=== PATIENT | male | born 1955 | race Caucasian/White ===

== ENCOUNTER 2018-11-24 07:35 | Day surgery (SDC) | payer BC ==
[~2018-11-24 07:35] MED LIST: ALBUTEROL NEB (CONC) 2.5 MG/0.5 ML INHALATION ONE; LIDOCAINE 2% (PF) 20 MG/ML 5 ML VIAL INHALATION ONE; LIDOCAINE VISCOUS 300 MG/15 ML CUP MUCOUS MEM ONE; SODIUM CHLORIDE 0.9% 1,000 ML IV SCH
[2018-11-24] MEDS ORDERED: LIDOCAINE 1% 20 ML VIAL (10MG/ML) FOR IV START INTRADERMA ONE (08:40)
[2018-11-24] MEDS ORDERED: DEXAMETHASONE SOD PHOS (MDV) 100 MG/10 ML VIAL IVP ONE ×2 (08:44)
[2018-11-24] MEDS ORDERED: ONDANSETRON 4 MG/2 ML VIAL IVP ONE ×2 (08:44)
[2018-11-24] MEDS ORDERED: LACTATED RINGERS 1,000 ML IV ONE (08:46)
[2018-11-24] MEDS ORDERED: MIDAZOLAM 2 MG/2 ML VIAL ONE (10:10)
[2018-11-24] MEDS ORDERED: PROPOFOL 10 MG/ML 20 ML VIAL IV ONE (10:10)
[2018-11-24] MEDS ORDERED: fentaNYL (PF) 50 MCG/ML 2 ML AMP ONE (10:10)
[2018-11-24] MEDS ORDERED: NEOSTIGMINE 1 MG/ML 10 ML VIAL ONE (10:10)
[2018-11-24] MEDS ORDERED: GLYCOPYRROLATE 0.2 MG/ML 2 ML VIAL ONE (10:10)
[2018-11-24] MEDS ORDERED: ROCURONIUM BROMIDE 10 MG/ML 10 ML VIAL IV ONE (10:10)
[2018-11-24] MEDS ORDERED: PHENYLEPHRINE-0.9% NACL SYG 1 MG/10 ML SYRINGE ONE (10:10)
[2018-11-24] MEDS ORDERED: LIDOCAINE 1% INJ 10MG/ML (20 ML MDV) ONE (10:10)
[2018-11-24] MEDS ORDERED: SUCCINYLCHOLINE CHLORIDE 100 MG/5 ML SYR IV ONE (10:10)
[2018-11-24] MEDS ORDERED: ePHEDrine SULFATE/0.9% NACL/PF 50 MG/5 ML SYRINGE IV ONE (10:10)
--- NOTE | 2018-11-24 11:24 | CT ---
EXAMINATION TYPE: CT Chest lavon Abad Protocol DATE OF EXAM: 11/24/2018 COMPARISON: None HISTORY: 53-year-old male Pulmonary nodule/mass. Navigational imaging. TECHNIQUE: Contiguous axial scanning of the chest without IV contrast. Inspiratory and expiratory carolyne ging was performed. Coronal and sagittal reconstructions performed. CT DLP: 567 mGycm Automated exposure control for dose reduction was used. FINDINGS: Large left hilar mass encases the left main pulmonary artery measuring at least 10.3 cm AP and 10.5 c m craniocaudal. This encases the left upper lobe bronchus with mass effect, narrowing the left upper lobe bronchus and partially encases the distal left main stem bronchus as well as the superior segmen t of left lower lobe bronchus. No definite mediastinal lymphadenopathy seen. Heart normal size without pericardial effusion. No consolidation or pleural effusion. Visualized upper abdomen shows hypodense lesion, probable cyst measuring 1.4 cm posterior right hepat ic dome and diffuse low-density thickening of the left adrenal gland, probably adrenal hyperplasia. Bones: No osseous destructive process seen. Superior end plate Schmorl's node of T5. IMPRESSION: LARGE 10.5 X 10.3 CM LEFT HILAR MASS PARTIALLY ENCASING DISTAL LEFT MAINSTEM BRONCHUS AND ENCASING TH E LEFT UPPER LOBE BRONCHUS WITH MASS EFFECT, NARROWING THE LEFT UPPER LOBE BRONCHUS. PARTIAL ENCASEME NT OF THE SUPERIOR SEGMENT LEFT LOWER LOBE BRONCHUS. NO DEFINITE SUSPICIOUS MEDIASTINAL LYMPHADENOPAT HY. IMAGING PERFORMED FOR NAVIGATIONAL PURPOSES.
[2018-11-24 11:26] VITALS: TEMP 97
--- NOTE | 2018-11-24 12:28 | P.PCN ---
Date of Procedure: 11/24/18 Preoperative Diagnosis: Left hilar mass Postoperative Diagnosis: Left hilar mass Procedure(s) Performed: Navigation bronchoscopy, transbronchial biopsy, brushing, transbronchial needle aspirate, bronchioloalveolar lavage Anesthesia: LAW Surgeon: Conchita Fry Hosiery Mender #1: Kaylan Bueno Estimated Blood Loss (ml): 0 Pathology: other Condition: stable Disposition: same day Operative Findings: This procedure was done under general anesthesia. The procedure was done under navigational guidance. A CAT scan of the chest was done using the [employer] protocol and following that the left hilar mass was mapped. 3 different target areas of interest were mapped on the CAT scan and the appropriate trajectory leading to left hilar mass was identified and all of this information was uploaded into a USB and then into the [employer] navigational tower. The appropriate V pads were applied to the patient's chest. The patient was brought into the operating room and under general anesthesia the procedure was completed. Intubation and mechanical ventilation process was done by MANAGER [employer]ERIALS MANAGEMENT anesthesia. The patient wasn't evaluated by a #8 orotracheal tube. After achieving adequate anesthesia, the flexible bronchoscope was inserted through the endotracheal tube and was advanced into the door trachea. The tip of the orotracheal tube was seen around 2 cm above the karen. The distal trachea was within normal limits. Karen was sharp in the midline. Examination of the right side including the right mainstem bronchus, right upper lobe bronchus, bronchus intermedius and right middle lobe bronchus and the right lower lobe bronchus and the various segments on the right side that were all within normal limits. The bronchoscope was then moved to the left. Examination of the left mainstem bronchus was within normal limits. The karen the left upper lobe bronchus of the left lower lobe bronchus was within normal limits. Examination of the left upper lobe showed that the apical segment of the left upper lobe had a tiny fragment of an endobronchial tumor which was pain with irregular surface. The anterior segment of the left upper lobe, lingular segments were patent within normal limits. Examination of the left lower lobe bronchus anterior lateral and the posterior segment and the patient was appropriate and within normal limits. At this point in time, using navigational guidance, transbronchial and endobronchial biopsies of the left hilar mass was done through the apical segment of the left upper lobe and the posterior segment of the left lower lobe. Appropriate samples were collected. Transbronchial needle aspirates of the left upper lobe apical segment was done and similarly, brushing of the left hilar mass was done utilizing the apical segment of the left upper lobe and position was again confirmed by navigational guidance. At the completion of the procedure, a BAL of the left upper lobe was done with a total of 80 mL of fluid was infused and 25 mL was suctioned back. Total amount of bleeding was less than 5 ML's. The patient tolerated the procedure well. Bronchoscope was removed. The patient was extubated and the patient was transferred recovery in stable condition. No bedside complications. The patient will be discharged home once cleared by anesthesia.
[2018-11-24 12:53] VITALS: PULSE 94; RESP 18
[2018-11-24 12:55] VITALS: BP 101/67
== END 2018-11-24 12:57 | disposition home or self-care (01) ==
LOC: ORWHC2ENDO 07:35
PROVIDERS: ATTEND Internal Medicine Critical Care Medicine
DX: J98.4 Other disorders of lung (principal); R91.8 Other nonspecific abnormal finding of lung field; J44.9 Chronic obstructive pulmonary disease, unspecified; F17.210 Nicotine dependence, cigarettes, uncomplicated; G40.909 Epilepsy, unspecified, not intractable, without status epilepticus; E78.5 Hyperlipidemia, unspecified; I10 Essential (primary) hypertension; M19.90 Unspecified osteoarthritis, unspecified site; Z79.899 Other long term (current) drug therapy; Z91.013 Allergy to seafood
CPT/HCPCS: 88104; 88108; 88305; 88173; 88342; 88341; 71250; 31628; 31629; 31623; 31624; 31627; J2250; J2710; J2405; J2001; J3010; J1100; J2370; J0330; J2704

== ENCOUNTER 2018-12-08 08:05 | Day surgery (SDC) | payer BC ==
[2018-12-08 08:46] VITALS: TEMP 98.5
[2018-12-08] MEDS ORDERED: ALPRAZolam 0.5 MG TAB PO STA (08:50)
[2018-12-08 09:13] LABS: Mean Platelet Volume 6.7; Platelet Count 678 k/uL (150-450)
[2018-12-08 09:23] LABS: INR 0.9 (<1.2); Prothrombin Time 9.9 sec (9.0-12.0)
--- NOTE | 2018-12-08 10:58 | XR ---
EXAMINATION TYPE: XR chest 1V portable DATE OF EXAM: 12/08/2018 COMPARISON: CT chest 11/24/2018, 12/08/2018 INDICATION: Post lung biopsy TECHNIQUE: Single frontal view of the chest is obtained. FINDINGS: The heart size is normal. The pulmonary vasculature is normal. There is a large mass at the left suprahilar region measuring 10.4 x 8.7 cm. Infiltrate is present pe ripheral to this mass. Aortic arch is visualized appears intact. No pneumothorax is evident post biop sy. IMPRESSION: 1. No pneumothorax post left lung biopsy. 2. Left upper lobe mass
[2018-12-08 11:48] VITALS: RESP 18
--- NOTE | 2018-12-08 12:59 | XR ---
EXAMINATION TYPE: XR chest 1V portable DATE OF EXAM: 12/08/2018 COMPARISON: Earlier chest x-ray INDICATION: Postbiopsy TECHNIQUE: Single frontal view of the chest is obtained. FINDINGS: The heart size is normal. The pulmonary vasculature is normal. Left upper lobe mass is again evident. There may be some increased opacity in the periphery distal to the mass. Consider atelectasis. No pneumothorax is evident. IMPRESSION: 1. No pneumothorax post biopsy
--- NOTE | 2018-12-08 13:22 | CT ---
EXAMINATION TYPE: CT biopsy lung LT DATE OF EXAM: 12/08/2018 HISTORY: Lung mass COMPARISON: Prior CT 11/24/2018 Maximal barrier technique was utilized. The skin overlying a suitable path to the lesion was localiz ed using CT and the overlying skin was prepped and draped. Lidocaine used for local anesthesia. A s kin julio made with a scalpel. Using CT guidance, access was gained to the lesion with an 18-gauge ne edle. Core specimen submitted to pathology in formalin. 1 pass was performed in all. Following the procedure no immediate complications. The patient is discharged in stable condition. Hemostasis ac hieved. IMPRESSION: SUCCESSFUL CT GUIDED BIOPSY. PATHOLOGY PENDING. THIS PROCEDURE WAS PERFORMED BY THE UNDERSIGNED.
[2018-12-08 13:27] VITALS: BP 114/62; PULSE 111
== END 2018-12-08 13:27 | disposition home or self-care (01) ==
LOC: RADPROMAIN 08:05
PROVIDERS: ATTEND Internal Medicine Critical Care Medicine
DX: R91.8 Other nonspecific abnormal finding of lung field (principal)
CPT/HCPCS: 36415; 71045; 77012; 85049; 85610; 88305

== ENCOUNTER → 2018-12-16 | Outpatient (CLI) | payer BC ==
--- NOTE | 2018-12-17 15:05 | PE ---
EXAMINATION TYPE: PET CT fusion skull to thigh DATE OF EXAM: 12/16/2018 COMPARISON: Chest x-ray 12/08/2018, CT chest 11/24/2018 Prior PET/CT: None HISTORY: Large lung mass TECHNIQUE: Following the intravenous administration of 11.73 mCi of F-18 FDG, whole body images are performed from the skull base to the midthigh. Images are reviewed on the computer in the coronal, a xial, and sagittal planes. Reconstructed rotating images are created on independent workstation and reviewed on the computer. A localization and attenuation correction CT is performed in conjunction with the PET scan. DLP: 331.64 mGycm SCAN: Initial Blood glucose: 82 mg/dL Average Mediastinum SUV: 1.23 Average Liver SUV: 1.86 FINDINGS: NECK: No abnormal uptake THORAX: There is a large focus of radiotracer accumulation within the lung mass compatible with neopl asm. CEA value of 5.5-8.1 Some central necrosis is likely present. There is increased density with i ncreased radiotracer in the posterior left lung base measuring 2.4 x 0.8 cm. Series 3 image 120. SUV value of 2.6, image 122. Metastatic lesion should be considered. No suspicious enlarged mediastinal lymph nodes are evident. No abnormal uptake within lymph nodes is evident ABDOMEN: No abnormal uptake PELVIS: No abnormal uptake OSSEOUS STRUCTURES: There may be some mild uptake within the proximal right humeral diaphysis with an SUV value 1.8. Mild uptake is within the proximal thoracic vertebral body, SUV value 2.6, image 55. Some focal radiotracer within an adjacent vertebral body has an SUV value 2.5 image 61. Mild diffuse uptake within ribs may be present bilaterally. Some focal uptake is within a right ischial ramus shannon uring 3.2 SUV, image 229. LOCALIZATION CT: Sending thoracic aorta at level the main pulmonary artery is 3.4 cm. The main pulmon magdalena artery the bifurcation is 2.4 cm. No enlarged mediastinal adenopathy is evident. Left upper lobe lung mass is estimated at 10.7 x 10.2 cm. Hypodensity within the superior right lobe liver is likely a cyst measures 1.0 cm. There is a 3.6 cm cyst on the posterior lateral right mid kidney measuring 10 Hounsfield units. COMPARISON: Left lung mass is concordant with the CT. IMPRESSION: 1. Large neoplastic process left upper lobe. 2. Uptake within the posterior left lung base could be compatible with metastasis.
== END | disposition home or self-care (01) ==
LOC: RADPETMAIN 12:35
PROVIDERS: ATTEND Nurse Practitioner Adult Health
DX: D49.1 Neoplasm of unspecified behavior of respiratory system (principal)
CPT/HCPCS: 78815; A9552

== ENCOUNTER → 2019-01-12 | Outpatient (CLI) | payer BC ==
--- NOTE | 2019-01-13 11:04 | MR ---
EXAMINATION TYPE: MR brain wo/w con DATE OF EXAM: 01/12/2019 9:39 PM COMPARISON: NONE HISTORY: Lung CA CONTRAST: Patient received 7.5 mL intravenous Gadavist gadolinium contrast. Multiplanar and multispin-echo imaging of the brain was performed . Pre and post contrast enhanced i mages are obtained. The ventricles, basal cisterns and sulci overlying the cerebral convexities are mildly enlarged. There is evidence of mild periventricular white matter ischemic demyelination. Remote deep white matter insults are also noted. No acute edema is seen on diffusion weighted imaging. There is no evidence for midline shift or mass effect. Acute intracranial hemorrhage or extra-axial collection is not evident. No enhancing lesions are seen. The paranasal sinuses and mastoid air cells are well-aerated. IMPRESSION: Age-related atrophic and chronic small vessel ischemic change. No acute intracranial process at this time. No enhancing lesions are seen.
== END | disposition home or self-care (01) ==
LOC: RADMRIMAIN 20:50
PROVIDERS: ATTEND Internal Medicine Hematology & Oncology
DX: G31.1 Senile degeneration of brain, not elsewhere classified (principal); I67.82 Cerebral ischemia; C34.12 Malignant neoplasm of upper lobe, left bronchus or lung
CPT/HCPCS: 70553; A9585

== ENCOUNTER → 2019-01-18 | Outpatient (CLI) | payer BC ==
--- NOTE | 2019-01-21 14:56 | MR ---
EXAMINATION TYPE: MR humerus RT w/wo con DATE OF EXAM: 01/18/2019 COMPARISON: PET CT 12/16/2018 HISTORY: 63-year-old male with right humerus abnormal imaging, history of lung cancer. Technique: Multiplanar, multisequence images of the the proximal right humerus were obtained before a nd after administration of 6.5 mL intravenous Gadavist gadolinium contrast. The imaging was suppleme nted with in and out of phase T1 weighted sequences for more detailed marrow assessment. FINDINGS: Edward is an oval fluid along the bicipital groove. There is heterogeneous signal of the supraspinatu s and infraspinatus tendons with sagittal series suggesting areas of intrasubstance change and some b ursal sided fraying of the infraspinatus tendon. Some mild edematous change tracks along the teres mi nor and could reflect strain. Moderate degenerative changes of the AC joint. Heterogeneous marrow signal is present particularly within the region of the surgical neck and proxim al shaft. This region corresponds to the area of questioned abnormality on PET CT. While there is corresponding mild enhancement in this region, on out of phase T1-weighted sequence, t here is significant signal drop in this region, for example, signal intensity decreases from 406 down to 75 where the muscle signal intensity drops from 342 down to 332. Similar diffuse changes involve the visualized scapula and distal clavicle. No extraosseous soft tissue abnormality seen. IMPRESSION: 1. Significant decrease in signal on out of phase sequence is in keeping with red marrow reconversion within the proximal humerus rather than metastatic disease. 2. Similar extensive patchy areas of marrow signal change (in keeping with red marrow reconversion) a re present within the visualized scapula and left clavicle. 3. Supraspinatus and infraspinous tendinosis. There is a shallow bursal sided fraying/tearing involvi ng the infraspinatus tendon and intrasubstance change within the supraspinatous tendon.
== END | disposition home or self-care (01) ==
LOC: RADMRIMAIN 11:08
PROVIDERS: ATTEND Internal Medicine Hematology & Oncology
DX: M67.813 Other specified disorders of tendon, right shoulder (principal); C34.12 Malignant neoplasm of upper lobe, left bronchus or lung
CPT/HCPCS: 73220; A9585

== ENCOUNTER → 2019-01-19 | Outpatient (CLI) | payer BC ==
--- NOTE | 2019-01-19 15:20 | MR ---
EXAMINATION TYPE: MR pelvis wo/w con DATE OF EXAM: 01/19/2019 COMPARISON: PET/CT dated 12/16/2018 (focal uptake in the right ischium measuring 3.2 SUV) HISTORY: LUNG CA CONTRAST: Standard multiplanar, multisequence MRI departmental protocol utilizing 7.5 mL intravenous Gadavist g adolinium contrast. FINDINGS: There is patchy hypointensity on precontrast nonfat sat and precontrast fat sat T1-weighted imaging t hroughout the pelvis with some areas of T1 hyperintensity representing fat. There is marked signal dr opout throughout the pelvis on out of phase imaging such as on in phase with a mean Hounsfield unit o f 797 and out of phase imaging mean Hounsfield unit of 128.3 on image 86. This is indicative of inter nal fat deposition and red marrow reconversion. Additionally there is only a low diffuse FDG uptake t hroughout the pelvis on the PET/CT of 12/08/2018 and there is no focal abnormal enhancement on the pos t contrast images on today's exam. There are new multiple areas of T1 hyperintensity within the central zone of the prostate gland in mi dportion and extending into the apex. Therefore diminishing ability to assess for enhancement. Correl ate with any recent prostatitis or biopsy. Signal is hyperintense on T1 fat-sat images. No dilated large or small bowel. No pathologic adenopathy seen. Urinary bladder appears grossly unrem arkable. Subcutaneous tissues are partially obscured. Mild degenerative changes of the lower spine an d femoral acetabular joints noted. IMPRESSION: 1. Pelvis bone marrow findings when correlated with the prior PET/CT of 12/16/2018 have MR characteris tics of benign red marrow reconversion rather than osseous metastasis. 2. Central zone prostate gland T1 hyperintensity, typically postbiopsy hemorrhage. Correlate with any recent biopsy.
== END ==
LOC: RADMRIMAIN 10:59
PROVIDERS: ATTEND Internal Medicine Hematology & Oncology
DX: C34.2 Malignant neoplasm of middle lobe, bronchus or lung (principal); R93.89 Abnormal findings on diagnostic imaging of other specified body structures
CPT/HCPCS: 72197; A9585

== ENCOUNTER → 2019-04-16 | Outpatient (CLI) | payer BC ==
[2019-04-16 13:44] LABS: African American GFR (CKD) >90 (>60 ml/min/1.73 sqM); Blood Urea Nitrogen 18 mg/dL (9-20); Non-African American GFR(CKD) >90 (>60 ml/min/1.73 sqM)
--- NOTE | 2019-04-16 15:19 | CT ---
EXAMINATION TYPE: CT ChestAbdPelvis w con DATE OF EXAM: 04/16/2019 COMPARISON: PET/CT December 16, 2018 and older outside CTs HISTORY: Lung cancer. CT DLP: 658.2 mGycm. Automated Exposure Control for Dose Reduction was Utilized. CONTRAST: CT scan of the thorax, abdomen and pelvis is performed with IV Contrast, patient injected with 100 mL of Isovue M300. FINDINGS: LUNGS: An area of prior neoplasm posterior aspect left upper lobe there is now thick walled cavitary lesion measuring approximately 5.3 x 5.3 cm with small adjacent left pleural fluid collection and endy rounding consolidation and/or mass extending to the suprahilar region. There is persistent encroachme nt on the left pulmonary artery with encasement of upper lobe branches. Overall size of the area of i nvolvement is 7.6 x 5.1 cm axial image 21 when accounting for adjacent consolidation. Craniocaudal co mponent is roughly 9.6 cm sagittal image 70. There are areas of bronchial narrowing and mild peribron chial wall thickening. There is scarring posteriorly extending to left lung apex on current study. Th ere is new patchy reticulation and groundglass opacity anteriorly right upper to midlung likely refle cting posttreatment change and/or edema. No new nodules or masses. MEDIASTINUM: There are no new greater than 1 cm hilar or mediastinal lymph nodes. No cardiomegaly or pericardial effusion is seen. [id number] diffuse wall thickening of the esophagus on curr ent study is slightly more prominent from prior outside CT and PET CT without hypermetabolic uptake o n PET/CT. OTHER: Roughly 1 cm low dense lesion posterior right hepatic dome\55 is stable favoring benign thin-w alled cyst. LIVER/GB: No significant abnormality is appreciated. PANCREAS: No significant abnormality is seen. SPLEEN: No significant abnormality is seen. ADRENALS: No significant abnormality is seen. KIDNEYS: There are a few scattered simple appearing thin-walled cysts throughout both kidneys. BOWEL: Oral contrast reaches level of right colon. No suspicious small or large bowel dilatation. GENITAL ORGANS: Prostate gland upper limits of normal. LYMPH NODES: No greater than 1cm abdominal or pelvic lymph nodes are appreciated. OSSEOUS STRUCTURES: Severe disc space narrowing with endplate sclerosis L5-S1 level0 and moderate spu rring. OTHER: No significant additional abnormality is seen. IMPRESSION: Some diminished size and cavitation of left posterior upper lung mass or neoplasm with hi lar extension. No new suspicious masses or adenopathy. Some mild edematous or posttreatment changes right upper to mid lung anteriorly thought present. Diffuse wall thickening of the esophagus with neg ative PET redemonstrated. Correlate clinically.
== END | disposition home or self-care (01) ==
LOC: RADCTMAIN 12:57
PROVIDERS: ATTEND Internal Medicine Hematology & Oncology
DX: Z03.89 Encounter for observation for other suspected diseases and conditions ruled out (principal); C34.12 Malignant neoplasm of upper lobe, left bronchus or lung; R93.5 Abnormal findings on diagnostic imaging of other abdominal regions, including retroperitoneum
CPT/HCPCS: 82565; 84520; 71260; 74177; 36415; Q9967

== ENCOUNTER → 2019-06-28 | Outpatient (CLI) | payer BC ==
[2019-06-28 07:54] LABS: African American GFR (CKD) >90 (>60 ml/min/1.73 sqM); Blood Urea Nitrogen 14 mg/dL (9-20); Non-African American GFR(CKD) >90 (>60 ml/min/1.73 sqM)
--- NOTE | 2019-06-28 10:48 | CT ---
EXAMINATION TYPE: CT ChestAbdPelvis w con DATE OF EXAM: 06/28/2019 INDICATION: Follow up for lung cancer. COMPARISON: 04/16/2019 CT DLP: 652.6 mGycm CONTRAST: Performed with Oral Contrast and with IV Contrast, patient injected with 100ml mL of Isovue 300. TECHNIQUE: Axial images at 5 mm thick sections. Reconstructed images in the coronal plane. Delayed images through the kidneys. FINDINGS: CT CHEST: Portion of the thyroid visualized is normal. There is a cavitary lesion in the posterior left lung. This measures 7.4 x 6.9 x 9.4 cm. Previous evelyn surement of 7.6 x 5.1 x 10.2 cm. The cavity is slightly larger currently measuring 6.4 x 5.2 cm. Prev ious measurement of 5.3 x 5.3 cm. There is consolidation inferior to this mass in the right posterior medial lung. No enlarged mediastinal or hilar adenopathy is evident. The ascending aorta diameter at the level of the main pulmonary artery is 3.2 cm. The main pulmonary artery diameter at the bifurcation is 2.[address] ABDOMEN: Liver: There is a 1.3 cm hypodensity within the right lobe liver could be a hepatic cyst near the dom e of the liver. Additional punctate hypodensity measuring 0.4 cm in the mid posterior right lobe live r Spleen: Normal Pancreas: Normal Adrenal glands: There is some mild thickening of the report left adrenal gland currently measuring 1. 3 cm. This is essentially unchanged from the comparison. Gallbladder: Normal Kidneys: No masses are evident. No hydronephrosis is present. No cysts are present. Delayed images were obtained through the kidneys, which remain unremarkable. Aorta: Vascular calcification is within the aorta. Inferior vena cava: Normal. CT PELVIS: Loops of bowel within the abdomen and pelvis are normal. There are loops of bowel which are incom pletely distended or lack oral contrast limiting their evaluation. Fecal debris is in the ascending a nd transverse colon. Appendix: Normal as visualized. Urinary bladder: Normal. Genitourinary structures: Prostate has mild hypertrophy. Osseous structures: No suspicious lytic or sclerotic lesions. IMPRESSIONS: 1. Cavitary lesion left apex. The cavity appears slightly larger although overall size of the mass ma y be smaller
== END | disposition home or self-care (01) ==
LOC: RADCTMAIN 07:15
PROVIDERS: ATTEND Internal Medicine Hematology & Oncology
DX: C34.12 Malignant neoplasm of upper lobe, left bronchus or lung (principal)
CPT/HCPCS: 82565; 84520; 71260; 74177; 36415; Q9967

== ENCOUNTER → 2019-08-17 | Outpatient (CLI) | payer BC ==
--- NOTE | 2019-08-17 11:30 | XR ---
Left RIBS HISTORY: Cough, pain, lung carcinoma, C 34.12 3 views of left RIBS Cavitary lesion in the left upper lobe shows an air-fluid level. Eighth posterior rib shows a e corti martha disruption compatible with fracture. 7th posterior rib on the left shows a cortical irregularity which is superimposed over the tumor but may represent a minimally displaced fracture. There is pleur al thickening left lung apex. No pneumothorax or pleural effusion evident. IMPRESSION: Findings compatible with patient's history of lung carcinoma. Posterior eighth rib fractu re Posterior left seventh rib fracture is possible but not well seen, CT could be performed alternati vely bone scan for additional evaluation..
== END | disposition home or self-care (01) ==
LOC: RADXRMAIN 10:31
PROVIDERS: ATTEND Internal Medicine Hematology & Oncology
DX: C34.12 Malignant neoplasm of upper lobe, left bronchus or lung (principal); I10 Essential (primary) hypertension; E78.00 Pure hypercholesterolemia, unspecified; G40.909 Epilepsy, unspecified, not intractable, without status epilepticus

== ENCOUNTER 2019-09-07 00:46 | Emergency (ER) | payer BC ==
[2019-09-07 00:50] VITALS: TEMP 98
[2019-09-07] MEDS ORDERED: ONDANSETRON 4 MG/2 ML VIAL IVP STA (01:00)
[2019-09-07] MEDS ORDERED: HYDROmorphone 1 MG/ML 1 ML SYRINGE IVP STA ×2 (01:00→01:48)
[2019-09-07 01:31] LABS: Anisocytosis Slight; Basophils % (A) 0 %; Eosinophils # (A) 0.2 k/uL (0-0.7); Eosinophils % (A) 2 %; HCT 34.6 % (39.0-53.0); HGB 10.5 gm/dL (13.0-17.5); Hypochromasia Moderate; Lymphocytes # (A) 0.5 k/uL (1.0-4.8); Lymphocytes % (A) 5 %; MCHC 30.4 g/dL (31.0-37.0); MCV 92.2 fL (80.0-100.0); Mean Platelet Volume 6.5; Monocytes # (A) 0.6 k/uL (0-1.0); Monocytes % (A) 6 %; Neutrophils # (A) 9.4 k/uL (1.3-7.7); Neutrophils % (A) 86 %; Platelet Count 704 k/uL (150-450); RBC 3.75 m/uL (4.30-5.90); RDW 17.4 % (11.5-15.5)
--- NOTE | 2019-09-07 01:39 | XR ---
EXAMINATION TYPE: XR chest 2V DATE OF EXAM: 09/07/2019 COMPARISON: 12/08/[address] scan 06/28/2019. HISTORY: Left rib pain. Short of breath. TECHNIQUE: FINDINGS: IMPRESSION: There is complex consolidation in the left upper lobe with air-fluid level on the lateral view consis tent with large cavity in the superior segment left lower lobe. There is pleural thickening on the le ft lung apex and left upper lateral chest wall. Heart and mediastinum are shifted slightly to the lef t side. The right lung is clear. There is no heart failure. IMPRESSION: Large cavitating mass in the left lung with fluid level also evident on the chest CT scan of 06/28/2019 and not changed in size. Pleural thickening in the left upper lobe. There is slight volume loss of t he left hemithorax. No heart failure seen.
[2019-09-07 01:44] LABS: ALT 23 U/L (4-49); AST 21 U/L (17-59); African American GFR (CKD) >90 (>60 ml/min/1.73 sqM); Albumin 3.7 g/dL (3.5-5.0); Alkaline Phosphatase 154 U/L (38-126); Anion Gap 10 mmol/L; Blood Urea Nitrogen 18 mg/dL (9-20); Calcium 9.5 mg/dL (8.4-10.2); Carbon Dioxide 23 mmol/L (22-30); Chloride 106 mmol/L (98-107); Glucose 127 mg/dL (74-99); Non-African American GFR(CKD) >90 (>60 ml/min/1.73 sqM); Potassium 4.5 mmol/L (3.5-5.1); Sodium 139 mmol/L (137-145); Total Bilirubin 0.2 mg/dL (0.2-1.3); Total Protein 7.6 g/dL (6.3-8.2)
[2019-09-07] MEDS ORDERED: PROMETHAZINE INJ 25 MG in SODIUM CHLORIDE 0.9% 50 ML IVPB STA (02:24)
--- NOTE | 2019-09-07 02:55 | ED ---
General Adult HPI - General Chief complaint: Shortness of Breath Stated complaint: Rib Pain Time Seen by Provider: 09/07/19 00:55 Source: patient, family Mode of arrival: ambulatory Limitations: no limitations - History of Present Illness Initial comments: 64-year-old male patient presents to the emergency department today for evaluation of left rib pain and cough. Patient does have current diagnosis of lung cancer, has underwent chemotherapy and radiation is now doing immunotherapy. Patient states he was recently treated for a lung infection with antibiotics and now has a cough. Patient states that the cough was so severe that he developed rib fractures to the seventh and eighth rib. This was diagnosed on 08/21/2019. Patient states that he is having difficulty controlling the cough. States that he had a severe coughing episode earlier in the day which causes his pain to worsen significantly. Patient feels short of breath related to this. Denies any hemoptysis. States he does have greenish sputum production. Denies fever or chills. Patient denies any recent rash, abdominal pain, nausea, vomiting, diarrhea, constipation, back pain, numbness, tingling, dizziness, weakness, hematuria, dysuria, urinary urgency, urinary frequency, headache, visual changes, or any other complaints. - Related Data Home Medications Medication Instructions Recorded Confirmed Atorvastatin Calcium [Lipitor] 10 mg PO DAILY 11/24/18 12/08/18 Lisinopril 20 mg PO DAILY 11/24/18 12/08/18 Phenytoin Sodium Extended 100 mg PO QID 11/24/18 12/08/18 [Dilantin] carBAMazepine [Carbamazepine ER] 300 mg PO TID 11/24/18 12/08/18 Previous Rx's Medication Instructions Recorded Hydrocodone/Acetaminophen [Graymont 1 tab PO Q4HR PRN 3 Days #18 tab 09/07/19 7.5-325] Lidocaine 5% Patch [Lidoderm] 1 patch TOPICAL DAILY #30 patch 09/07/19 Promethazine HCl [Phenergan Syrup] 6.25 mg PO Q6H #200 ml 09/07/19 Allergies Allergy/AdvReac Type Severity Reaction Status Date / Time shellfish derived [Shellfish] AdvReac Nausea & Verified 09/07/19 00:50 Vomiting Review of Systems ROS Statement: Those systems with pertinent positive or pertinent negative responses have been documented in the HPI. ROS Other: All systems not noted in ROS Statement are negative. Past Medical History Past Medical History: Hyperlipidemia, Hypertension, Seizure Disorder Additional Past Medical History / Comment(s): last seizure was 15 years ago, lung mass History of Any Multi-Drug Resistant Organisms: None Reported Additional Past Surgical History / Comment(s): bronchoscopy, cyst removal times 2 Past Anesthesia/Blood Transfusion Reactions: No Reported Reaction Past Psychological History: No Psychological Hx Reported Smoking Status: Former smoker Past Alcohol Use History: Daily Past Drug Use History: None Reported - Past Family History Father Family Medical History: Diabetes Mellitus Mother Family Medical History: Cancer Additional Family Medical History / Comment(s): breast General Exam Limitations: no limitations General appearance: alert, in no apparent distress, other (Physical well- developed, well-nourished adult male patient in no acute distress. Vital signs upon presentation are temperature 98.2F, pulse 87, respirations 22, blood pressure 129/75, pulse ox 100% on room air.) Eye exam: Present: normal appearance, PERRL, EOMI. Absent: scleral icterus, conjunctival injection, periorbital swelling ENT exam: Present: normal exam, normal oropharynx, mucous membranes moist Respiratory exam: Present: normal lung sounds bilaterally, chest wall tenderness (Left lateral), other (persistent cough noted throughout exam). Absent: respiratory distress, wheezes, rales, rhonchi, stridor Cardiovascular Exam: Present: regular rate, normal rhythm, normal heart sounds. Absent: systolic murmur, diastolic murmur, rubs, gallop, clicks Neurological exam: Present: alert, oriented X3, CN II-XII intact Psychiatric exam: Present: normal affect, normal mood Skin exam: Present: warm, dry, intact, normal color. Absent: rash Course Vital Signs 09/07/19 09/07/19 00:46 01:55 Temperature 98 F Pulse Rate 87 106 H Respiratory 22 19 Rate Blood Pressure 129/75 132/80 O2 Sat by Pulse 100 95 Oximetry Medical Decision Making - Medical Decision Making 64-year-old male patient presents to the emergency department today for evaluation of cough and left-sided rib pain. Physical examination did reveal diminished lung sounds on the left side. Labs reviewed and are unremarkable. Chest x-ray was obtained and shows persistent findings of a cavitary lesion to the left upper lobe with or air-fluid level. Previous images reviewed and patient does have a seventh and eighth rib fracture. Patient was given IV pain medication and cough medication here in the emergency department. Upon reevaluation he does feel somewhat improved. I did offer admission for pain management, he declines stating he would like to try pain management at home. He'll be given a prescription for Graymont and Phenergan for cough. He is instructed to call his oncologist in the morning for further instruction and evaluation. He is instructed to follow-up with his primary care physician for recheck in 1-2 days. Return parameters were discussed in detail. He verbalizes understanding and agrees with this plan. - Lab Data Result diagrams: 09/07/19 01:20 09/07/19: Lab Results 09/07/19 09/07/19 09/07/19 Range/Units :09 04:09 04:20 WBC 11.0 H (3.8-10.6) k/uL RBC 3.75 L (4.30-5.90) m/uL Hgb 10.5 L (13.0-17.5) gm/dL Hct 34.6 L (39.0-53.0) % MCV 92.2 (80.0-100.0) fL MCH 28.0 (25.0-35.0) pg MCHC 30.4 L (31.0-37.0) g/dL RDW 17.4 H (11.5-15.5) % Plt Count 704 H (150-450) k/uL Neutrophils % 86 % Lymphocytes % 5 % Monocytes % 6 % Eosinophils % 2 % Basophils % 0 % Neutrophils # 9.4 H (1.3-7.7) k/uL Lymphocytes # 0.5 L (1.0-4.8) k/uL Monocytes # 0.6 (0-1.0) k/uL Eosinophils # 0.2 (0-0.7) k/uL Basophils # 0.0 (0-0.2) k/uL Hypochromasia Moderate Anisocytosis Slight Sodium 139 (137-145) mmol/L Potassium 4.5 (3.5-5.1) mmol/L Chloride 106 (98-107) mmol/L Carbon Dioxide 23 (22-30) mmol/L Anion Gap 10 mmol/L BUN 18 (9-20) mg/dL Creatinine 0.63 L (0.66-1.25) mg/dL Est GFR (CKD-EPI)AfAm >90 (>60 ml/min/1.73 sqM) Est GFR (CKD-EPI)NonAf >90 (>60 ml/min/1.73 sqM) Glucose 127 H (74-99) mg/dL Plasma Lactic Acid Bakari 1.0 (0.7-2.0) mmol/L Calcium 9.5 (8.4-10.2) mg/dL Total Bilirubin 0.2 (0.2-1.3) mg/dL AST 21 (17-59) U/L ALT 23 (4-49) U/L Alkaline Phosphatase 154 H (38-126) U/L Total Protein 7.6 (6.3-8.2) g/dL Albumin 3.7 (3.5-5.0) g/dL - Radiology Data Radiology results: report reviewed, image reviewed Two-view x-ray of the chest is obtained. Report was reviewed in its entirety. Impression by Dr. Sullivan shows large cavitating mass in the left lung with fluid bubble also evident on the chest computed tomography scan of 06/28/2019 and not changed in size. Pleural thickening in the left upper lobe. There is slight volume loss of the left hemithorax. No heart failure seen. Disposition Clinical Impression: Cough, Rib fractures Disposition: HOME SELF-CARE Condition: Good Instructions (If sedation given, give patient instructions): Rib Fracture (ED), Acute Cough (ED) Additional Instructions: Take medications as directed. Follow up with your primary care physician and oncologist for further evaluation as soon as possible. Return to the emergency department for any new, worsening, or concerning symptoms. Prescriptions: Lidocaine 5% Patch [Lidoderm] 1 patch TOPICAL DAILY #30 patch Hydrocodone/Acetaminophen [[place] 7.5-325] 1 tab PO Q4HR PRN 3 Days #18 tab PRN Reason: Pain Promethazine HCl [Phenergan Syrup] 6.25 mg PO Q6H #200 ml Is patient prescribed a controlled substance at d/c from ED?: Yes When asked, does pt state using other controlled substances?: No If prescribed controlled substance>3 days was MAPS reviewed?: Prescribed <3 Days If opioid is for acute pain is fill amount 7 days or less?: Yes If Rx opioid, was Start Talking consent form obtained?: Yes Referrals: Byron Faulkner MD [Primary Care Provider] - 1-2 days Burak Ventura MD [STAFF PHYSICIAN] - 1-2 days Time of Disposition: 02:58
[2019-09-07] MEDS ORDERED: LIDOCAINE 5% PATCH TOPICAL STA (02:58)
[2019-09-07 03:24] VITALS: BP 129/63; PULSE 96; RESP 18
== END 2019-09-07 03:22 | disposition home or self-care (01) ==
LOC: EC 00:46
DX: R91.8 Other nonspecific abnormal finding of lung field (principal); R05 Cough; S22.41XD Multiple fractures of ribs, right side, subsequent encounter for fracture with routine healing; C34.90 Malignant neoplasm of unspecified part of unspecified bronchus or lung; E78.5 Hyperlipidemia, unspecified; I10 Essential (primary) hypertension; G40.909 Epilepsy, unspecified, not intractable, without status epilepticus; Z79.899 Other long term (current) drug therapy; Z87.891 Personal history of nicotine dependence; Z91.013 Allergy to seafood; Z98.890 Other specified postprocedural states; Z92.21 Personal history of antineoplastic chemotherapy; Z92.3 Personal history of irradiation; Z92.25 Personal history of immunosuppression therapy; X58.XXXD Exposure to other specified factors, subsequent encounter
CPT/HCPCS: 99285; 96365; 96375 ×2; 96376; 36415; 80053; 83605; 85025; 87040; 71046; J2550; J2405; J1170

== ENCOUNTER 2019-10-04 11:40 | Day surgery (SDC) | payer BC ==
[2019-10-03 11:28] VITALS: BMI 22.2
[~2019-10-04 11:40] MED LIST changes: +LACTATED RINGERS 1,000 ML IV SCH
[2019-10-04 12:18] VITALS: TEMP 97.6
[2019-10-04 12:24] LABS: Glucose,Whole Blood 111 mg/dL (75-99)
[2019-10-04] MEDS ORDERED: ONDANSETRON 4 MG/2 ML VIAL ONE (12:25)
[2019-10-04] MEDS ORDERED: PHENYLEPHRINE-0.9% NACL SYG 1 MG/10 ML SYRINGE ONE (13:20)
[2019-10-04] MEDS ORDERED: fentaNYL (PF) 50 MCG/ML 2 ML AMP ONE (13:20)
[2019-10-04] MEDS ORDERED: SUCCINYLCHOLINE CHLORIDE 100 MG/5 ML SYR IV ONE (13:20)
[2019-10-04] MEDS ORDERED: MIDAZOLAM 2 MG/2 ML VIAL ONE (13:20)
[2019-10-04] MEDS ORDERED: PROPOFOL 10 MG/ML 20 ML VIAL IV ONE (13:20)
--- NOTE | 2019-10-04 14:23 | P.PCN ---
Date of Procedure: 10/04/19 Preoperative Diagnosis: Non-small cell lung cancer, Post chemoradiation therapy, hemoptysis Postoperative Diagnosis: Non-small cell lung cancer, endobronchial narrowing and bronchoconstriction and the various segments of the left lower lobe, endobronchial abnormalities in the posterior segment of the left lower lobe bronchitis, prominent malathi the lingular and the upper lobe bronchi in addition to some endobronchial irregularity in the apical posterior and anterior abdominal the left upper lobe. No active bleeding for now. Procedure(s) Performed: Flexible bronchoscopy, airway inspection, BAL of the left upper lobe bronchus, BAL of the left lower lobe bronchus, transbronchial needle aspirate of the malathi the to the lingula and the left upper lobe bronchus, endobronchial biopsies of the lingula in the apical-posterior of the left upper lobe, and the bronchial biopsies of the posterior segment of the left lower, and the bronchial brushings from the posterior segment of the left lower lobe. Anesthesia: GETADEIDRE Surgeon: Conchita Fry Pick Up #1: Kaylan Bueno Estimated Blood Loss (ml): 0 Condition: stable Disposition: same day Operative Findings: This procedure was done in the endoscopy suite. Initially started off with gentle sedation with propofol and inspect the upper airway. After achieving adequate sedation, the flexible bronchoscope was utilized to visualize the upper airways. The bronchoscope was introduced through the right nostril. The posterior oropharynx, larynx, epiglottis, vallecula, erythematous vocal cords were all within normal limits. The subglottic trachea was also within normal limits and there was no evidence of any bleeding in the upper airway or any bleeding source from the pharynx larynx or subglottic area. At that point, the patient was allowed to be intubated by anesthesia and he was placed on a mechanical ventilator. The rest of the procedure was done and the patient was adequately mechanically ventilated. An adapter was essentially orotracheal tube and following that the bronchoscope was introduced into the trachea and the distal trachea was within normal limits. Examination the right side including the right upper lobe bronchus, bronchus intermedius, right middle lobe and right lower lobe bronchus and the various segments were also inspected and there were all within normal limits. The bronchoscope was then to the left side. Left mainstem bronchus was within normal limits. Immediately after we looked into the left upper lobe, there was a mucous [place] that was obstructing the orifice of the left upper lobe bronchus. The mucus was suctioned out. The malathi the to the left upper and left lower lobe was quite prominent and swollen. Similarly, the malathi the to the left upper lobe bronchus subsegment and lingula. Utilizing a 21-gauge esophageal, making a cytology, transbronchial needle aspirate of this malathi was done with a total of 3 passes of each was obtained and the samples were sent for cell block. Examination left lower lobe bronchus showed endobronchial irregularities specially in the posterior segment of the left lower lobe. The orifice of the left lower lobe bronchus was quite tortuous and it was described there was circumferential significant tracheal fibrotic tissue band around the orifice causing narrowing of the orifice by around 50%. I am assuming this is related to radiation scarring in the origin of the left lower lobe bronchus. At this point, a bronchioloalveolar lavage of the lingula segment was done very introduced total of 60 mL and 10-15cc was suctioned back. The bronchioloalveolar lavage of the posterior segment of the left lower lobe was also done and using 60 mL and aspirating on 10 mL. Following that, he denies a smaller caliber bronchoscope with an outer diameter of 4.1 mm to complete an airway inspection. There was some endobronchial irregularities and apical posterior segment of the left upper lobe bronchus and the posterior segment of the left lower lobe bronchus. These were the main target from biopsies were taken. In terms of the left upper lobe, endobronchial biopsies of the left upper lobe apical posterior segment and the lingular segment was done. In terms of the left lower lobe, endobronchial biopsies of the left lower lobe posterior segment was done. At the completion procedure endobronchial brushings of the left lower lobe posterior segment was done. I was unable to identify any active source of bleeding. No blood clots. No active bleeding was seen. The bronchial mucosa at the level of the posterior segment of the left lower lobe and apical posterior segment of the left upper lobe was quite inflamed and those were probably the source of bleeding. Bronchoscope was removed. The patient was extubated and transferred recovery in stable condition.
[2019-10-04 14:35] VITALS: RESP 16
[2019-10-04] MEDS ORDERED: PROMETHAZINE INJ 25 MG/ML 1 ML VIAL IVPB ONE (14:45)
[2019-10-04 15:28] VITALS: BP 110/58; PULSE 114
[2019-10-05 21:14] LABS: Appearance,BF Bloody; Color,BF Red
[2019-10-05 21:15] LABS: Appearance,BF Bloody; Color,BF Pink; Nucleated Cells, Body Fluid 9750 /uL; RBC, Body Fluid 35000 /uL
[2019-10-05 21:16] LABS: Nucleated Cells, Body Fluid 3400 /uL; RBC, Body Fluid 12750 /uL
[2019-10-05 21:45] LABS: Mononuclear WBC,Body Fluid 2 %; Polynuclear WBC,Body Fluid 98 %
[2019-10-05 21:46] LABS: Mononuclear WBC,Body Fluid 1 %; Polynuclear WBC,Body Fluid 99 %
== END 2019-10-04 15:45 | disposition home or self-care (01) ==
LOC: ORWHC2ENDO 11:40
PROVIDERS: ATTEND Internal Medicine Critical Care Medicine
DX: C34.32 Malignant neoplasm of lower lobe, left bronchus or lung (principal); R89.7 Abnormal histological findings in specimens from other organs, systems and tissues; J40 Bronchitis, not specified as acute or chronic; J98.09 Other diseases of bronchus, not elsewhere classified; J18.9 Pneumonia, unspecified organism; J84.10 Pulmonary fibrosis, unspecified; I10 Essential (primary) hypertension; E78.5 Hyperlipidemia, unspecified; D63.8 Anemia in other chronic diseases classified elsewhere; G40.409 Other generalized epilepsy and epileptic syndromes, not intractable, without status epilepticus; S05.00XD Injury of conjunctiva and corneal abrasion without foreign body, unspecified eye, subsequent encounter; R74.8 Abnormal levels of other serum enzymes; J44.9 Chronic obstructive pulmonary disease, unspecified; Z79.52 Long term (current) use of systemic steroids; Z79.899 Other long term (current) drug therapy; Z79.891 Long term (current) use of opiate analgesic; Z87.81 Personal history of (healed) traumatic fracture; Z92.21 Personal history of antineoplastic chemotherapy; Z92.3 Personal history of irradiation; Z91.013 Allergy to seafood; Z79.1 Long term (current) use of non-steroidal anti-inflammatories (NSAID); Z98.890 Other specified postprocedural states; Z87.891 Personal history of nicotine dependence; X58.XXXD Exposure to other specified factors, subsequent encounter
CPT/HCPCS: 88104; 88108; 88305; 88173; 31629; 31625; 31623; 31624; J2250; J2550; J2405; J3010; J2370; J0330; J2704; 87070; 87205; 89050

== ENCOUNTER 2019-10-10 11:45 | Emergency (ER) | payer BC ==
[2019-10-10] MEDS ORDERED: SODIUM CHLORIDE 0.9% 500 ML 500 ML IV STA (11:57)
[2019-10-10] MEDS ORDERED: PIPERACILLIN-TAZOBACTAM 3.375 GM in SODIUM CHLORIDE 0.9% 100 ML IVPB STA (11:57)
--- NOTE | 2019-10-10 12:45 | ED ---
General Adult HPI - General Source: patient, RN notes reviewed, old records reviewed Mode of arrival: ambulatory Limitations: no limitations <Gianluca Boudreaux - Last Filed: 10/10/19 15:46> <Gianluca Hart - Last Filed: 10/10/19 17:10> - General Chief complaint: Recheck/Abnormal Lab/Rx Stated complaint: coughing up blood Time Seen by Provider: 10/10/19 11:57 - History of Present Illness Initial comments: 64-year-old male presents from the outpatient setting for evaluation of hemoptysis. Patient has history of lung cancer has had chemotherapy approximately one month ago. He is currently on immunotherapy. He was seen by his director semiconductor Dr. Fry this morning who sent the patient emergency department to be admitted. He had bronchoscopy approximately one week ago. He reports hemoptysis which is been ongoing for some time. He denies central chest pain. He does report dyspnea which is baseline. Denies lower sternal pain or swelling. Denies abdominal pain. (Gianluca Boudreaux) - Related Data Home Medications Medication Instructions Recorded Confirmed Phenytoin Sodium Extended 400 mg PO DAILY 11/24/18 10/10/19 [Dilantin] carBAMazepine [Carbamazepine ER] 600 mg PO QAM 11/24/18 10/10/19 Amoxic-Pot Clav 875-125Mg 1 tab PO BID 10/10/19 10/10/19 [Augmentin 875-125] carBAMazepine [carBAMazepine ER] 300 mg PO HS 10/10/19 10/10/19 Previous Rx's Medication Instructions Recorded Hydrocodone/Acetaminophen [[place] 1 tab PO Q4HR PRN 3 Days #18 tab 09/07/19 7.5-325] Allergies Allergy/AdvReac Type Severity Reaction Status Date / Time shellfish derived [Shellfish] AdvReac Nausea & Verified 10/10/19 11:56 Vomiting Review of Systems ROS Other: All systems not noted in ROS Statement are negative. <Gianluca Boudreaux - Last Filed: 10/10/19 15:46> ROS Other: All systems not noted in ROS Statement are negative. <Gianluca Hart - Last Filed: 10/10/19 17:10> ROS Statement: Those systems with pertinent positive or pertinent negative responses have been documented in the HPI. Past Medical History Past Medical History: Cancer, Hyperlipidemia, Hypertension, Osteoarthritis (OA), Pneumonia, Seizure Disorder Additional Past Medical History / Comment(s): last seizure was 1999 APPROX , lung CANER 2019 History of Any Multi-Drug Resistant Organisms: None Reported Additional Past Surgical History / Comment(s): bronchoscopy, cyst removed from cheek and thumb , Past Anesthesia/Blood Transfusion Reactions: No Reported Reaction Past Psychological History: No Psychological Hx Reported Smoking Status: Former smoker Past Alcohol Use History: None Reported Past Drug Use History: None Reported - Past Family History Father Family Medical History: Diabetes Mellitus Mother Family Medical History: Cancer Additional Family Medical History / Comment(s): breast <AmandaGianluca doe - Last Filed: 10/10/19 15:46> General Exam Limitations: no limitations General appearance: alert, in no apparent distress Head exam: Present: atraumatic, normocephalic Eye exam: Present: normal appearance, PERRL Neck exam: Present: normal inspection, tenderness Respiratory exam: Present: decreased breath sounds (minimal air entry on the left.). Absent: respiratory distress Cardiovascular Exam: Present: regular rate, normal rhythm GI/Abdominal exam: Present: soft. Absent: distended, tenderness Extremities exam: Present: normal inspection, normal capillary refill. Absent: pedal edema Neurological exam: Present: alert, oriented X3 Psychiatric exam: Present: normal affect, normal mood Skin exam: Present: warm, dry, intact. Absent: cyanosis, diaphoretic <Gianluca Boudreaux N - Last Filed: 10/10/19 15:46> Course <Gianluca Boudreaux N - Last Filed: 10/10/19 15:46> <TannerGianluca - Last Filed: 10/10/19 17:10> Vital Signs 10/10/19 10/10/19 10/10/19 11:53 12:50 13:26 Temperature 98.1 F Pulse Rate 107 H 110 H 95 Respiratory 22 20 18 Rate Blood Pressure 85/65 95/67 108/68 O2 Sat by Pulse 100 97 98 Oximetry 10/10/19 10/10/19 10/10/19 14:20 15:53 16:03 Temperature 98.9 F 98.2 F 98.1 F Pulse Rate 95 98 102 H Respiratory 20 18 18 Rate Blood Pressure 99/70 107/54 94/72 O2 Sat by Pulse 97 95 96 Oximetry - Reevaluation(s) Reevaluation #1: 10/10/19 1430 Patient does have several episodes of hemoptysis while in the emergency department, totaling approximately 80-100 mL of champ blood. (Gianluca Boudreaux) Reevaluation #2: 10/10/19 15:06 I discussed the x-ray findings and symptoms with Dr. Ruiz, covering for pulmon ology. Given the x-ray findings and persistent hemoptysis he recommends transfer for evaluation by both interventional radiology and cardiothoracic surgery. (Gianluca Boudreaux) Reevaluation #3: 10/10/19 15:46 Patient's care is signed out to Dr. Hart awaiting final disposition transfer to tertiary center. (Gianluca Boudreaux) Reevaluation #4: 10/10/19 17:08 The patient was endorsed to me by Dr. Boudreaux at our shift change. Pending call back for possible transfer the patient was to be transferred to [facility]. I did discuss this with patient family who have agreed to be transferred. I did discuss the case with the transfer team and Dr. Martin was agreed to set the patient transfer. The concern is that the patient and coughing up blood for the past 2 days he has intermittent episodes he had normal [place] apparently about a week ago. He did have a dropped his hemoglobin from 10.5 on September 06 of this year to 7.5 today. He was in the process of receiving a blood transfusion he currently is hemodynamically stable. (Gianluca Hart) EKG Findings - EKG Comments: EKG Findings:: EKG: Normal sinus rhythm, rate of 95, VT interval 126, QRS duration 88, QTC [address] segment elevation. <Gianluca Boudreaux - Last Filed: 10/10/19 15:46> Medical Decision Making - Lab Data Result diagrams: 10/10/19 12:43 10/10/19 12:43 <Gianluca Boudreaux - Last Filed: 10/10/19 15:46> - Lab Data Result diagrams: 10/10/19 12:43 10/10/19 12:43 <Gianluca Hart - Last Filed: 10/10/19 17:10> - Medical Decision Making 64-year-old male with long CA status post chemotherapy with complaint of hemoptysis. Symptoms by his director semiconductor Dr. Fry. Initial recommendation was that he antibiotic and admit. I did discuss case with pulmonology covering today and the recommendation was for transfer. Patient has a hemoglobin of 7.5 which is down trending from 10.2 proximally one month ago. 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 I did discuss these findings with Dr. Ruiz who recommends transfer for possible interventional radiology and cardiothoracic endy theo. Case discussed with Miranda Hameed, currently awaiting an accepting physician. (Gianluca Boudreaux) - Lab Data Lab Results 10/10/19 10/10/19 10/10/19 Range/Units 12:35 12:40 12:43 WBC 12.9 H (3.8-10.6) k/uL RBC 2.54 L (4.30-5.90) m/uL Hgb 7.5 L D (13.0-17.5) gm/dL Hct 24.9 L (39.0-53.0) % MCV 98.2 D (80.0-100.0) fL MCH 29.4 (25.0-35.0) pg MCHC 29.9 L (31.0-37.0) g/dL RDW 19.6 H (11.5-15.5) % Plt Count 838 H (150-450) k/uL Neutrophils % 86 % Lymphocytes % 4 % Monocytes % 6 % Eosinophils % 1 % Basophils % 0 % Neutrophils # 11.2 H (1.3-7.7) k/uL Lymphocytes # 0.5 L (1.0-4.8) k/uL Monocytes # 0.7 (0-1.0) k/uL Eosinophils # 0.1 (0-0.7) k/uL Basophils # 0.1 (0-0.2) k/uL Hypochromasia Marked Anisocytosis Slight Macrocytosis Slight PT (9.0-12.0) sec INR (<1.2) APTT (22.0-30.0) sec Sodium (137-145) mmol/L Potassium (3.5-5.1) mmol/L Chloride (98-107) mmol/L Carbon Dioxide (22-30) mmol/L Anion Gap mmol/L BUN (9-20) mg/dL Creatinine (0.66-1.25) mg/dL Est GFR (CKD-EPI)AfAm (>60 ml/min/1.73 sqM) Est GFR (CKD-EPI)NonAf (>60 ml/min/1.73 sqM) Glucose (74-99) mg/dL Plasma Lactic Acid Bakari (0.7-2.0) mmol/L Calcium (8.4-10.2) mg/dL Magnesium (1.6-2.3) mg/dL Total Bilirubin (0.2-1.3) mg/dL AST (17-59) U/L ALT (4-49) U/L Alkaline Phosphatase (38-126) U/L Troponin I (0.000-0.034) ng/mL Total Protein (6.3-8.2) g/dL Albumin (3.5-5.0) g/dL Blood Type A Positive Blood Type Confirm A Positive Blood Type Recheck No Previous Record Bld Type Recheck Status CABO Indicated Antibody Screen NEGATIVE Crossmatch See Detail Spec Expiration Date 10/13/2019232510/10/19 10/10/19 10/10/19 Range/Units 12:43 12:43 12:43 WBC (3.8-10.6) k/uL RBC (4.30-5.90) m/uL Hgb (13.0-17.5) gm/dL Hct (39.0-53.0) % MCV (80.0-100.0) fL MCH (25.0-35.0) pg MCHC (31.0-37.0) g/dL RDW (11.5-15.5) % Plt Count (150-450) k/uL Neutrophils % % Lymphocytes % % Monocytes % % Eosinophils % % Basophils % % Neutrophils # (1.3-7.7) k/uL Lymphocytes # (1.0-4.8) k/uL Monocytes # (0-1.0) k/uL Eosinophils # (0-0.7) k/uL Basophils # (0-0.2) k/uL Hypochromasia Anisocytosis Macrocytosis PT 9.8 (9.0-12.0) sec INR 0.9 (<1.2) APTT 23.4 (22.0-30.0) sec Sodium 135 L (137-145) mmol/L Potassium 5.0 (3.5-5.1) mmol/L Chloride 103 (98-107) mmol/L Carbon Dioxide 20 L (22-30) mmol/L Anion Gap 12 mmol/L BUN 22 H (9-20) mg/dL Creatinine 0.60 L (0.66-1.25) mg/dL Est GFR (CKD-EPI)AfAm >90 (>60 ml/min/1.73 sqM) Est GFR (CKD-EPI)NonAf >90 (>60 ml/min/1.73 sqM) Glucose 105 H (74-99) mg/dL Plasma Lactic Acid Bakari 1.8 (0.7-2.0) mmol/L Calcium 9.0 (8.4-10.2) mg/dL Magnesium 2.1 (1.6-2.3) mg/dL Total Bilirubin 0.3 (0.2-1.3) mg/dL AST 22 (17-59) U/L ALT 23 (4-49) U/L Alkaline Phosphatase 152 H (38-126) U/L Troponin I (0.000-0.034) ng/mL Total Protein 6.6 (6.3-8.2) g/dL Albumin 3.4 L (3.5-5.0) g/dL Blood Type Blood Type Confirm Blood Type Recheck Bld Type Recheck Status Antibody Screen Crossmatch Spec Expiration Date 10/10/19 Range/Units 12:43 WBC (3.8-10.6) k/uL RBC (4.30-5.90) m/uL Hgb (13.0-17.5) gm/dL Hct (39.0-53.0) % MCV (80.0-100.0) fL MCH (25.0-35.0) pg MCHC (31.0-37.0) g/dL RDW (11.5-15.5) % Plt Count (150-450) k/uL Neutrophils % % Lymphocytes % % Monocytes % % Eosinophils % % Basophils % % Neutrophils # (1.3-7.7) k/uL Lymphocytes # (1.0-4.8) k/uL Monocytes # (0-1.0) k/uL Eosinophils # (0-0.7) k/uL Basophils # (0-0.2) k/uL Hypochromasia Anisocytosis Macrocytosis PT (9.0-12.0) sec INR (<1.2) APTT (22.0-30.0) sec Sodium (137-145) mmol/L Potassium (3.5-5.1) mmol/L Chloride (98-107) mmol/L Carbon Dioxide (22-30) mmol/L Anion Gap mmol/L BUN (9-20) mg/dL Creatinine (0.66-1.25) mg/dL Est GFR (CKD-EPI)AfAm (>60 ml/min/1.73 sqM) Est GFR (CKD-EPI)NonAf (>60 ml/min/1.73 sqM) Glucose (74-99) mg/dL Plasma Lactic Acid [place] (0.7-2.0) mmol/L Calcium (8.4-10.2) mg/dL Magnesium (1.6-2.3) mg/dL Total Bilirubin (0.2-1.3) mg/dL AST (17-59) U/L ALT (4-49) U/L Alkaline Phosphatase (38-126) U/L Troponin I <0.012 (0.000-0.034) ng/mL Total Protein (6.3-8.2) g/dL Albumin (3.5-5.0) g/dL Blood Type Blood Type Confirm Blood Type Recheck Bld Type Recheck Status Antibody Screen Crossmatch Spec Expiration Date Critical Care Time Critical Care Time: Yes Total Critical Care Time: 35 <Gianluca Boudreaux - Last Filed: 10/10/19 15:46> Disposition Is patient prescribed a controlled substance at d/c from ED?: No Decision to Admit Reason: Admit from EC Decision Date: 10/10/19 Decision Time: 14:30 <Gianluca Boudreaux - Last Filed: 10/10/19 15:46> - Out of Hospital Transfer - Req. Specs Out of Hospital Transfer - Requested Specifics: Other Non-Acute <Gianluca Hart - Last Filed: 10/10/19 17:10> Clinical Impression: Hemoptysis, Stage III adenocarcinoma of lung, Hydropneumothorax, Anemia Disposition: OTHER INSTITUTION NOT DEFINED Condition: Serious Referrals: Byron Faulkner MD [Primary Care Provider] - 1-2 days
[2019-10-10 13:18] LABS: Anisocytosis Slight; Basophils # (A) 0.1 k/uL (0-0.2); Basophils % (A) 0 %; Eosinophils # (A) 0.1 k/uL (0-0.7); Eosinophils % (A) 1 %; HCT 24.9 % (39.0-53.0); Hypochromasia Marked; Lymphocytes # (A) 0.5 k/uL (1.0-4.8); Lymphocytes % (A) 4 %; MCH 29.4 pg (25.0-35.0); MCHC 29.9 g/dL (31.0-37.0); Macrocytosis Slight; Mean Platelet Volume 6.8; Monocytes # (A) 0.7 k/uL (0-1.0); Monocytes % (A) 6 %; Neutrophils # (A) 11.2 k/uL (1.3-7.7); Neutrophils % (A) 86 %; Platelet Count 838 k/uL (150-450); RBC 2.54 m/uL (4.30-5.90); RDW 19.6 % (11.5-15.5); WBC 12.9 k/uL (3.8-10.6)
[2019-10-10 13:21] LABS: HGB 7.5 gm/dL (13.0-17.5); MCV 98.2 fL (80.0-100.0)
[2019-10-10 13:27] LABS: INR 0.9 (<1.2); Partial Thromboplastin Time 23.4 sec (22.0-30.0); Prothrombin Time 9.8 sec (9.0-12.0)
[2019-10-10 13:29] LABS: ALT 23 U/L (4-49); AST 22 U/L (17-59); African American GFR (CKD) >90 (>60 ml/min/1.73 sqM); Albumin 3.4 g/dL (3.5-5.0); Alkaline Phosphatase 152 U/L (38-126); Anion Gap 12 mmol/L; Blood Urea Nitrogen 22 mg/dL (9-20); Carbon Dioxide 20 mmol/L (22-30); Chloride 103 mmol/L (98-107); Glucose 105 mg/dL (74-99); Magnesium 2.1 mg/dL (1.6-2.3); Non-African American GFR(CKD) >90 (>60 ml/min/1.73 sqM); Sodium 135 mmol/L (137-145); Total Bilirubin 0.3 mg/dL (0.2-1.3); Total Protein 6.6 g/dL (6.3-8.2)
--- NOTE | 2019-10-10 13:46 | XR ---
EXAMINATION TYPE: XR chest 2V DATE OF EXAM: 10/10/2019 CLINICAL HISTORY: Difficulty breathing. Hemoptysis. TECHNIQUE: Frontal and lateral views of the chest are obtained. COMPARISON: [facility] CT chest 09/26/2019 FINDINGS: There is left hemithorax volume loss with masslike opacities of the left perihilar region and left upper lobe. There is upward retraction of the left main stem bronchus. Several areas of air trapping are seen within the left upper lung, and air-fluid level is seen on lateral view. This air-f luid level was not demonstrated on 09/26/2019 CT chest comparison. There is airspace patchy densities o f the left lower lobe, worse posteriorly. The cardiac silhouette is within normal limits for size. Sm all left pleural effusion. The no evidence of displaced osseous fracture. IMPRESSION: 1. Masslike opacity of the left perihilar and upper lung, with volume loss and superior retraction o f the left mainstem bronchus. Air-fluid level of the posterior chest seen on lateral view most likely represents loculated hydropneumothorax. Given patient's history of lung neoplasm and chemotherapy, p rimary differential consideration is given to development of bronchopleural fistula. 2. Small left basilar pleural effusion also seen. Dr. Shantel Arellano spoke with Dr. Gianluca Boudreaux via the phone on 10/10/2019 at 1:43 PM regarding findings, and results were utilized.
[2019-10-10] MEDS ORDERED: PHENYTOIN SODIUM EXTENDED 100 MG CAP PO STA (15:28)
[2019-10-10] MEDS ORDERED: PIPERACILLIN-TAZOBACTAM 3.375 GM in SODIUM CHLORIDE 0.9% 100 ML IVPB SCH (16:00)
[2019-10-10] MEDS ORDERED: PHENYTOIN 50 MG CHEWABLE PO STA (17:13)
[2019-10-10 21:43] VITALS: BP 97/72; PULSE 86; RESP 18; TEMP 98.2
== END 2019-10-10 22:23 | disposition other institution (70) ==
LOC: EC 11:45
DX: C34.90 Malignant neoplasm of unspecified part of unspecified bronchus or lung (principal); R04.2 Hemoptysis; J94.8 Other specified pleural conditions; D64.9 Anemia, unspecified; G40.909 Epilepsy, unspecified, not intractable, without status epilepticus; Z20.828 Contact with and (suspected) exposure to other viral communicable diseases; Z87.01 Personal history of pneumonia (recurrent); Z92.21 Personal history of antineoplastic chemotherapy; Z87.891 Personal history of nicotine dependence; Z79.899 Other long term (current) drug therapy; Z91.013 Allergy to seafood; Z53.8 Procedure and treatment not carried out for other reasons
CPT/HCPCS: 36415; 93005; 86900; 86901; 80053; 83605; 83735; 84484; 85025; 85610; 85730; 86850; 86920; 87040; 71046; 99285; 96365; 96361; P9016; U0003; J2543; 36430

== ENCOUNTER → 2019-10-27 | Outpatient (CLI) | payer BC ==
--- NOTE | 2019-10-28 20:41 | PE ---
EXAMINATION TYPE: PET CT fusion skull to thigh DATE OF EXAM: 10/27/2019 COMPARISON: CT chest 09/26/2019 Prior PET/CT: 12/16/2018 HISTORY: Lung cancer, subsequent treatment strategy. Last radiation therapy April 2019. Last chemo therapy July 2019. Immunotherapy August 2019. Left rib fractures. Hemoptysis. TECHNIQUE: Following the intravenous administration of 12.0 mCi of F-18 FDG, whole body images are p erformed from the skull base to the midthigh. Images are reviewed on the computer in the coronal, ax ial, and sagittal planes. Reconstructed rotating images are created on independent workstation and r eviewed on the computer. A localization and attenuation correction CT is performed in conjunction w ith the PET scan. SCAN: Subsequent Scan Blood glucose: 100 mg/dL Average Mediastinum SUV: 1.26 Average Liver SUV: 2.07 FINDINGS: NECK: No suspicious hypermetabolic activity. THORAX: Hypermetabolic pleural thickening and confluent masslike opacity of the entire left upper vishal g, max SUV 5.61. Increased cavitary component of the posterior left apex measures up to approximately 7.8 x 5.0 cm. Areas of pleural nodularity at the left lung base without hypermetabolic activity. Ret iculonodular opacities of the left lung base. Small left pleural effusion with no metabolic activity. No metabolically active mediastinal or hilar adenopathy. ABDOMEN/PELVIS: No suspicious hypermetabolic activity. Thickened appearance of the left adrenal gland without discrete nodule or metabolic activity. Mild activity of the right pelvic rectum is likely ph ysiologic as there is no corresponding soft tissue thickening seen on CT. OSSEOUS STRUCTURES: No suspicious hypermetabolic activity. Mild activity seen at left rib 9 and rib 8 fracture sites. There is fracture of left ribs 7, 6, and 5 with no metabolic activity. No definitive sclerotic or lytic aggressive lesions are associated with these rib fractures. LOCALIZATION CT: Right hepatic dome simple cyst with no metabolic activity. Unchanged thickening of t he left adrenal gland with no metabolic activity. Severe calcified atherosclerotic disease. IMPRESSION: 1. Hypermetabolic masslike opacity of the entire left upper lung. Findings are increased in size and metabolic activity from 12/08/[address] comparison, and similar in extent overall versus 09/26/2019 CT chest comparison however with increased posterior cavitary component. 2. New small left pleural effusion. 3. No distant metastatic disease. 4. Metabolic activity associated with multiple left-sided rib fractures, consistent with patient's pr ovided history, unlikely to be pathologic.
== END | disposition home or self-care (01) ==
LOC: RADPETMAIN 10:02
PROVIDERS: ATTEND Radiology Radiation Oncology
DX: J90 Pleural effusion, not elsewhere classified (principal); R91.8 Other nonspecific abnormal finding of lung field; S22.42XA Multiple fractures of ribs, left side, initial encounter for closed fracture; C34.12 Malignant neoplasm of upper lobe, left bronchus or lung; Z87.891 Personal history of nicotine dependence; Z92.21 Personal history of antineoplastic chemotherapy
CPT/HCPCS: 78815; A9552